=== PATIENT | male | born 2005 | race Hispanic/Latino ===

== ENCOUNTER 2025-04-17 08:40 | Outpatient (CLI) | payer OTHER | END 2025-04-17 08:41 | disposition home or self-care (01) | LOC: CSHWCC 08:40 | PROVIDERS: ATTEND Nurse Practitioner Family | DX: T81.31XD Disruption of external operation (surgical) wound, not elsewhere classified, subsequent encounter (principal); L05.91 Pilonidal cyst without abscess | CPT/HCPCS: 11042; 99202; G0463 ==

== ENCOUNTER 2025-04-24 09:09 | Outpatient (CLI) | payer OTHER | END 2025-04-24 09:10 | disposition home or self-care (01) | LOC: CSHWCC 09:09 | PROVIDERS: ATTEND Nurse Practitioner Family | DX: T81.31XD Disruption of external operation (surgical) wound, not elsewhere classified, subsequent encounter (principal); L05.91 Pilonidal cyst without abscess | CPT/HCPCS: 11042 ==

== ENCOUNTER 2025-05-01 11:04 | Outpatient (CLI) | payer OTHER | END 2025-05-01 11:05 | disposition home or self-care (01) | LOC: CSHWCC 11:04 | PROVIDERS: ATTEND Nurse Practitioner Family | DX: T81.31XD Disruption of external operation (surgical) wound, not elsewhere classified, subsequent encounter (principal); L05.91 Pilonidal cyst without abscess | CPT/HCPCS: 11042 ==